=== PATIENT | female | born 1970 | race Caucasian/White ===

== ENCOUNTER → 2024-06-28 10:45 | Outpatient (CLI) | payer MEDICARE, MEDICAID, SELFPAY | PROVIDERS: PCP Nurse Practitioner Gerontology; Referring Provider Internal Medicine; Visit Provider Internal Medicine | DX: R06.02 Shortness of breath (principal); Z86.16 Personal history of COVID-19 | CPT/HCPCS: 94060; 94726; 94729 ==

== ENCOUNTER → 2024-06-28 | Outpatient (CLI) | payer MEDICARE, MEDICAID, SELFPAY ==
--- NOTE | 2024-06-28 13:52 | ST.SWALLOW ---
Visit Care Team Role Provider Type MEMO Quarles Attending Provider Non-Staff Primary Care Provider Referring Provider Specialty: Geriatrics Address: [address] [place] [address], [id number] Email: Modified Barium Swallow Study CLINICAL SCIENTIST Modified Barium Swallow Study Start: 06/28/24 12:48 Freq: Status: Active Protocol: Document 06/28/24 12:51 LNK (Rec: 06/28/24 13:52 LNK [id number]) Modified Barium Swallow Study Total Time Visit Start Time 11:45 Visit Stop Time 12:30 Total Visit Minutes 45 Referral Referring Physician MEMO Mosley Reason for Referral choking; dysphagia Setting Setting Outpatient Care Patient Information Identification Type Name,Date of Patient History Pt was seen for a Modified Barium Swallow Study at the referral of MEMO Mosley. According to the pt, she chokes on solid foods at least twice a day almost to needing a Heimlich. Foods/solids that are problematic for the pt include , bread, rice, potatoes, meats. She denies difficulty with liquids and pills; although she stated she doesn't take many pills. Pt denies GERD; although she noted eating 6-8 Tums a day for...stomach, or neurologic or injury to head/neck. She reported an EGD procedure approximately 1 year ago that she thinks was normal. Pt did report a family history of esophagitis and cancer for her mother. Her mother reportedly choking. This was a concern for the pt since she has started choking so frequently. Subjective Observations Pt was seated in the fluoroscopy chair with directions and procedures described for her. She indicated she understood and agreed to proceed. Patient Positioning Position View Lat-A/P Imaging Lateral View Textures Administered Trials Presented Thin Liquid via Spoon (IDDSI 0 ),Thin Liquid via Cup (IDDSI 0 ),Extremely Thick Liquid via Spoon (IDDSI 4),Regular (IDDSI 7) Barium Tablet Yes The IDDSI Framework Protocol: IDDSI.1 Oral Impairment Source: The Modified Barium Swallow Impairment Profile (MBSImP??) Lip Closure Interlabial escape; no progression to anterior lip Tongue Control During Bolus Hold Escape to lateral buccal cavity/floor of mouth (FOM) Bolus Preparation/Mastication Disorganized chewing/mashing with solid pieces of bolus unchewed Bolus Transport/Lingual Motion Delayed initiation of tongue motion Oral Residue Trace residue lining oral structures Location Floor of mouth,Tongue Initiation of Pharyngeal Swallow Bolus head at posterior angle of ramus (first hyoid excursion) Additional Oral Impairment Observations * DKS was observed to be WNL. * Pt's lips, velum, buccal cavities and tongue were observed to be WNL for form and function *Pt was edentulous. He stated she does not have dentures, and hasn't, for approximately 13 years. *Upon oral inspection, pt's upper and lower arches were noted to be significantly regressed and nearly flattened *Mastication observed With a disorganized and tongue mashing pattern resulting in solid pieces of food unchewed *Bolus formation, control and AP transition observed to be poor. *Premature spillage to the floor of the mouth and valeculla of unchewed pieces noted in the valeculla and on aryepiglottic folds pre- swallow initiation Pharyngeal Impairment Source: The Modified Barium Swallow Impairment Profile (MBSImP??) Soft Palate Elevation No bolus between soft palate & pharyngeal wall Laryngeal Elevation Comp.sup.move.thyroid cart.w/ comp.approx.arytenoids to epiglot petiole Anterior Hyoid Excursion Complete anterior movement Epiglottic Movement Complete inversion Laryngeal Vestibular Closure Complete; no air/contrast in laryngeal vestibule Pharyngeal Stripping Wave Present - complete Pharyngoesophageal Segment Opening Complete distention & complete duration; no obstruction of flow Tongue Base Retraction Narrow column of contrast/air betwn tongue base & post. pharyngeal wall Pharyngeal Residue Trace residue within/on pharyngeal structures Location Valleculae Additional Pharyngeal Impairment Pt's pharyngeal swallow phase Observations observed to be WNL A/P View Textures Administered Trials Presented Thin Liquid via Spoon (IDDSI 0 ) The IDDSI Framework Protocol: IDDSI.1 A/P View Observations Pharyngeal Contraction Complete Esophageal Clearance Upright Position Complete clearance; esophageal coating Vocal Fold Function Good Esophageal Function WFL Additional A-P Observations Thin liquid and calibrated barium tablet were presented in AP trials. Pt's esophageal phase of swallowing observed to be WNL Clinical Impressions Dysphagia Type Oral Findings Pt presented with oral phase dysphagia secondary to the ineffective and inefficient ability to masticate solid foods. Pt's chew pattern was a disorganized tongue mashing pattern with pieces of foods unchewed when swallowing. Pieces of solid trials were noted within the valeculla and on the aryeppiglottic folds over an open airway. Pt reports choking on solid foods 2-3 times per day. It is likely that ineffective/ inefficient mastication is contributing to a high aspiration risk. Referral to DDS is recommemnded . it is likely that if the pt is able to get upper and lower dentures, her mastication will improve reducing aspiration risk Patient Appropriate for Therapy No Recommendations Diet Medication Recommendation As Tolerated Comments Do diet change recommended. Pt encouraged to increase moisture when eating, Treatment Plan Recommended Referrals Dental Evaluation
== END ==
LOC: RAD 10:49
PROVIDERS: PCP Nurse Practitioner Gerontology; Referring Provider Nurse Practitioner Gerontology; Visit Provider Nurse Practitioner Gerontology
DX: R13.10 Dysphagia, unspecified (principal)
CPT/HCPCS: 74230; 92611; 94060; 94726; 94729